=== PATIENT | female | born 1950 | race Caucasian/White ===

== ENCOUNTER 2017-12-13 07:55 | Day surgery (SDC) | payer MEDICARE, OTHER ==
--- NOTE | 2017-11-22 08:58 | Operative Report ---
Operative Report DATE OF SURGERY: 11/22/17 PREOPERATIVE DIAGNOSIS: 1. 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 2. Diverticulosis POSTOPERATIVE DIAGNOSIS: Same with small polyp at rectosigmoid junction OPERATION: 1. Total colonoscopy to cecum. 2. Rectosigmoid polypectomy SURGEON: VIKY MARTINS ANESTHESIA: Moderate Sedation TISSUE REMOVED OR ALTERED: polyp rectosigmoid colon COMPLICATIONS: None ESTIMATED BLOOD LOSS: None INTRAOPERATIVE FINDINGS: See below PROCEDURE: Obtaining informed consent the patient was taken from the preoperative holding area to the main endoscopy suite where monitoring devices were attached to the patient. Plan and surgical timeout were conducted The patient was placed in the left lateral decubitus position with knees to chest. A perianal examination was performed. There was no visible or palpable anorectal pathology. Small hemorrhoids appreciated. Sphincter tone was felt to be normal. The flexible adult colonoscope was advanced through the anal rectal canal, all the way to the cecum. Visualization of the cecum was achieved and the ileocecal valve, the appendiceal orifice and transillumination of the anterior abdominal wall. This was an excellent study on the well-prepped bowel. The colonoscope was withdrawn slowly and methodically checked and the mucosa carefully. There was evidence of previous colon resection likely segmental transverse colectomy. There was no evidence of tumor, stricture, bleeding; there is a small polyp versus lymphoid hyperplasia at approximately or polyp. There were scattered diverticulosis of the sigmoid colon, but no stricture. The scope was slowly withdrawn through the anal rectal canal. Complete visualization of the rectum was achieved with photodocumentation. The scope was withdrawn to the patient's anus. The patient tolerated the procedure well and was taken to the recovery area in stable condition. Surveillance colonoscopy will be considered in 3-5 years pending patient's overall medical condition given her advanced age.
--- NOTE | 2017-11-22 09:02 | Discharge Summary ---
Discharge Summary (SDC) - Discharge Final Diagnosis: Sigmoid diverticulosis; small rectosigmoid colon polyp; status post transverse colectomy Date of Surgery: 11/22/17 Discharge Date: 11/22/17 Condition: Good Treatment or Instructions: [address] [id number] POST ENDOSCOPY DISCHARGE INSTRUCTIONS 1. Diet: Start clear liquids that a regular diet as tolerated. 2. Resume all preoperative medications. All oral anticoagulants and aspirins can be resumed 24 hours after procedure. 3. If a polypectomy was performed some bleeding per rectum may occur. This should stop within 3 days. If not, please contact the office. 4. If you had a colonoscopy you may experience some bloating and delayed return of normal bowel function for several days, your regular bowel movement pattern should resume within a week. 5. Please contact [facility] at to make an appointment with Dr. Monahan for 1 to 3 weeks following procedure. 6. If you have any questions or concerns regarding your care,treatment plan or follow up, please contact our office. 7. Per clinical guidelines we recommend you undergo a repeat colonoscopy in 3 years. Referrals: MELODY BAUTISTA MD [Primary Care Provider] - Discharge Diet: As Tolerated Discharge Activity: Activity As Tolerated Home Care Assistance: None Needed Report the Following to Your Physician Immediately: Shortness of Breath, Increase in Pain, Fever over 101 Degrees
[~2017-12-13 07:55] MED LIST: DIPHENHYDRAMINE HCL 50 MG/ML VIAL ONE; EPINEPHRINE INJ 1 MG/10 ML DISP.SYRIN ONE; FLUMAZENIL INJ 0.5 MG/5 ML VIAL ONE; GLUCAGON,HUMAN RECOMB 1 MG INJ ONE; NALOXONE HCL INJ/PF 0.4 MG/1 ML SDV ONE; ONDANSETRON HCL INJ/PF 4 MG/2 ML SDV ONE
[2017-12-13] MEDS: MIDAZOLAM 2 MG/2 ML INJ ONE ×2 (08:42→08:53)
[2017-12-13] MEDS: FENTANYL CITRATE INJ/PF 100 MCG/2 ML AMPUL ONE ×2 (08:44→09:00)
--- NOTE | 2017-12-13 09:17 | Discharge Summary ---
Discharge Summary (SDC) - Discharge Final Diagnosis: Hyperplastic polyps of the rectum; family history of colon cancer Date of Surgery: 11/22/17 Discharge Date: 12/13/17 Treatment or Instructions: [place] [id number] POST ENDOSCOPY DISCHARGE INSTRUCTIONS 1. Diet: Start clear liquids that a regular diet as tolerated. 2. Resume all preoperative medications. All oral anticoagulants and aspirins can be resumed 24 hours after procedure. 3. If a polypectomy was performed some bleeding per rectum may occur. This should stop within 3 days. If not, please contact the office. 4. If you had a colonoscopy you may experience some bloating and delayed return of normal bowel function for several days, your regular bowel movement pattern should resume within a week. 5. Please contact [facility] at to make an appointment with Dr. Monahan for 1 to 3 weeks following procedure. 6. If you have any questions or concerns regarding your care,treatment plan or follow up, please contact our office. 7. Per clinical guidelines we recommend you undergo a repeat colonoscopy in 3 years. Referrals: MELODY BAUTISTA MD [HONORARY] - Discharge Activity: Activity As Tolerated Home Care Assistance: None Needed Report the Following to Your Physician Immediately: Shortness of Breath, Increase in Pain, Fever over 101 Degrees
--- NOTE | 2017-12-13 09:21 | Operative Report ---
Nonrecallable Operative Report DATE OF SURGERY: 12/13/17 PREOPERATIVE DIAGNOSIS: 1. Personal history of colon polyps. 2. Family history of colon cancer POSTOPERATIVE DIAGNOSIS: Same with hyperplastic polyps of the rectum OPERATION: 1. Total colonoscopy to cecum. 2. Upper rectal polypectomy 3 SURGEON: VIKY MARTINS ANESTHESIA: Moderate Sedation TISSUE REMOVED OR ALTERED: Polyps 3 COMPLICATIONS: None ESTIMATED BLOOD LOSS: Scant INTRAOPERATIVE FINDINGS: See below PROCEDURE: Obtaining informed consent the patient was taken from the preoperative holding area to the main endoscopy suite where monitoring devices were attached to the patient. Plan and surgical timeout were conducted The patient was placed in the left lateral decubitus position with knees to chest. A perianal examination was performed. There was no visible or palpable anorectal pathology. Sphincter tone was felt to be normal. The flexible adult colonoscope was advanced through the anal rectal canal, all the way to the cecum. Negotiating the scope through the sigmoid colon was somewhat challenging. However upon scope withdrawal, there was no evidence of stricture. Visualization of the cecum was achieved and the ileocecal valve, the appendiceal orifice and transillumination of the anterior abdominal wall. This was an excellent study on the well-prepped bowel. The colonoscope was withdrawn slowly and methodically checked and the mucosa carefully. There was no evidence of tumor, stricture, bleeding; there were multiple small hyperplastic polyps of the upper rectum. 3 were removed with the cold forceps device. Bleeding minimal. Specimen placed in the same container; There was no evidence of diverticuloses. The scope was slowly withdrawn through the anal rectal canal. Complete visualization of the rectum was achieved with photodocumentation. The scope was withdrawn to the patient's anus. The patient tolerated the procedure well and was taken to the recovery area in stable condition. Surveillance guidelines, patient be appropriate candidate for follow-up colonoscopy in 3 years, or sooner if symptoms develop.
[2017-12-13 10:56] VITALS: BP 107/62
== END 2017-12-13 10:20 | disposition home or self-care (01) ==
LOC: END 07:55
PROVIDERS: ATTEND Surgery
DX: Z12.11 Encounter for screening for malignant neoplasm of colon (principal); K63.5 Polyp of colon; Z86.010 Personal history of colon polyps; Z80.0 Family history of malignant neoplasm of digestive organs; E03.9 Hypothyroidism, unspecified; E78.00 Pure hypercholesterolemia, unspecified; Z87.891 Personal history of nicotine dependence; Z79.899 Other long term (current) drug therapy; Z79.82 Long term (current) use of aspirin
CPT/HCPCS: 45380; 88305 ×2; J2250; J3010; J0171; J1200; J1610; J2310; J2405; J3490